=== PATIENT | male | born 1975 | race Caucasian/White ===

== ENCOUNTER 2019-10-10 23:25 | Emergency (ER) | payer SELFPAY ==
[~2019-10-10] VITALS: Ht 160 cm; Wt 66.3 kg
[2019-10-11 01:32] LABS: BASOPHIL % 0.3 % (0-2); PLATELET COUNT 241 x10^3mcL (130-400); RED CELL DISTRIBUTION WIDTH 13.6 % (11.5-14.5)
[2019-10-11 01:34] LABS: CALCIUM 8.5 mg/dL (8.5-10.1); CARBON DIOXIDE 29.5 mmol/L (21-32); CHLORIDE SERUM 99 mmol/L (98-107); CREATININE SERUM 0.9 mg/dL (0.7-1.3); GFR1 > 60 mL/min; GLUCOSE SERUM 116 mg/dL (74-106); POTASSIUM SERUM 3.1 mmol/L (3.5-5.1); SODIUM SERUM 138 mmol/L (136-145)
[2019-10-11 01:39] LABS: ALBUMIN 3.8 g/dL (3.4-5.0); ALKALINE PHOSPHATASE 67 U/L (46-116); ALT/SGPT 24 U/L (16-63); AST/SGOT 20 U/L (15-37); TOTAL PROTEIN, SERUM 7.8 g/dL (6.4-8.2)
[2019-10-11 04:13] VITALS: BP 118/75
== END 2019-10-11 04:13 | disposition home or self-care (01) ==
LOC: ED 23:25
DX: R07.89 Other chest pain (principal); R42 Dizziness and giddiness
CPT/HCPCS: 36415